=== PATIENT | female | born 1945 | race Two or more races ===

== ENCOUNTER → 2024-12-10 | Outpatient (CLI) | payer OTHER, SELFPAY ==
--- NOTE | 2024-12-10 10:23 | XR_ITS ---
Examination: Shoulder,right, 3 views Technique: Shoulder AP internal rotation, AP external rotation, Y view shoulder, 3 views Exam date and time :December 10, 2024 1030 hrs. Indications: Patient fell 4 months ago with injury to the shoulder, shoulder pain. Findings: Prominent osteopenia. No acute shoulder fracture or dislocation Mild osteoarthritis glenohumeral joint Impression: No acute shoulder fracture or dislocation
--- NOTE | 2024-12-10 10:23 | XR_ITS ---
Examination: Knee, right , 3 views Technique: Knee AP, lateral, oblique 3 views Date and time of exam: December 10, 2024 1030 hrs. Indications: Patient fell 4 months ago with injury to the knee, knee pain Findings: Advanced osteoarthritis lateral joint spaces and patellofemoral joint Moderate knee effusion No acute fracture Impression: No acute fracture
== END | disposition home or self-care (01) ==
PROVIDERS: Referring Provider Nurse Practitioner Family; Visit Provider Nurse Practitioner Family
DX: S49.91XA Unspecified injury of right shoulder and upper arm, initial encounter (principal); S89.91XA Unspecified injury of right lower leg, initial encounter; W18.30XA Fall on same level, unspecified, initial encounter
CPT/HCPCS: 73030; 73562

== ENCOUNTER → 2025-01-03 | Outpatient (CLI) | payer OTHER, SELFPAY ==
--- NOTE | 2025-01-03 11:00 | XR_ITS ---
Examination: Screening digital mammography, bilateral Computer aided detection 3-D breast Tomosynthesis, bilateral Date and time of exam: January 03, 2025 0933 hours Compared to mammograms dating to 05/13/2016 Indication: Screening Technique: Nonmagnified MLO, CC views of the breasts to been obtained, reconstructed from 3-D Tomosynthesis images. R2 computer aided detection program utilized for evaluation of suspicious masses and/or abnormal calcifications. 3-D Tomosynthesis images obtained. Findings: Scattered areas of fibroglandular density. Benign calcifications. No interval suspicious masses Impression: BI-RADS category II: Benign Findings. Recommend 1 year follow-up mammogram.
== END | disposition home or self-care (01) ==
LOC: CDIM 09:10
PROVIDERS: Referring Provider Nurse Practitioner Family; Visit Provider Nurse Practitioner Family
DX: Z12.31 Encounter for screening mammogram for malignant neoplasm of breast (principal); R92.323 Mammographic fibroglandular density, bilateral breasts; R92.1 Mammographic calcification found on diagnostic imaging of breast
CPT/HCPCS: 77063; 77067

== ENCOUNTER → 2025-02-07 | Outpatient (CLI) | payer OTHER, SELFPAY ==
--- NOTE | 2025-02-07 12:00 | XR_ITS ---
Examination: Bone densitometry Date and time of exam:February 07, 2025 12:20 PM INDICATIONS: Menopause age 47, family history sister osteoporosis, personal history osteopenia Technique: Lumbar spine and hip total bone mineralization values of an calculated. Peak reference and age match control results have been displayed. Findings: Lumbar spine total bone mineralization is0.881 gm/cm2. This is 1.5 standard deviations below peak reference. This is 1.3 standard deviations above age-matched controls. Hip total bone mineralization is 0.861 gm/cm2 This is 0.8 standard deviations below peak reference. This is 1.2 standard deviations above age-matched controls Impression: There is osteopenia based on lumbar spine measurements. There is osteopenia based on hip measurements Lumbar mineralization is increase 7.3% compared with August 17, 2018 Hip mineralization is decreased 1.5% compared with August 17, 2018
== END | disposition home or self-care (01) ==
LOC: CDIM 11:41
PROVIDERS: PCP Nurse Practitioner Family; Referring Provider Nurse Practitioner Family; Visit Provider Nurse Practitioner Family
DX: M85.89 Other specified disorders of bone density and structure, multiple sites (principal)
CPT/HCPCS: 77080

== ENCOUNTER → 2025-03-27 | Outpatient (CLI) | payer OTHER, SELFPAY ==
--- NOTE | 2025-03-27 10:00 | XR_ITS ---
Examination: Thyroid sonography complete TECHNIQUE: Grayscale sonographic images thyroid lobes Date and time: March 27, 2025 1030 hours INDICATIONS: Pressure in the throat region and neck area 2 months. FINDINGS: Right thyroid 5.0 cm No solid nodules Left thyroid 3.2 cm Lower pole nodule 13 x 7 x 9 mm vascular IMPRESSION: Consider ultrasound-guided fine-needle aspiration of the vascular lower pole left thyroid nodule
== END | disposition home or self-care (01) ==
PROVIDERS: PCP Nurse Practitioner Family; Referring Provider Nurse Practitioner Family; Visit Provider Nurse Practitioner Family
DX: E04.1 Nontoxic single thyroid nodule (principal)
CPT/HCPCS: 76536

== ENCOUNTER → 2025-05-28 | Outpatient (CLI) | payer OTHER, SELFPAY ==
[2025-05-27 07:39] LABS: Basophils # (Auto) 0.0 Thou/mm3 (0.0-0.2); Basophils % (Auto) 0 % (0-2.5); Eosinophils # (Auto) 0.1 Thou/mm3 (0.0-0.5); Eosinophils % (Auto) 2 % (0-10); Hematocrit 41.2 % (36.0-46.0); Hemoglobin 13.5 g/dL (12.0-16.0); Immature Granulocytes Auto 0.02 Thou/mm3 (0.00-0.00); Lymphocytes # (Auto) 2.8 Thou/mm3 (1.0-4.8); Lymphocytes % (Auto) 37 % (10-50); Mean Corpuscular HGB Conc 32.8 g/dl (31.0-37.0); Mean Corpuscular Hemoglobin 28.1 pg (25.0-35.0); Mean Corpuscular Volume 86 fL (80-100); Monocytes # (Auto) 0.6 Thou/mm3 (0.0-0.8); Monocytes % (Auto) 7 % (0-12); Neutrophils # (Auto) 4.0 Thou/mm3 (1.8-7.7); Neutrophils % (Auto) 54 % (37-80); Nucleated Red Blood Cell # 0.00 Thou/mm3 (0.00-0.00); Nucleated Red Blood Cell % 0 /100 WBC (0); Platelet Count 267 Thou/mm3 (140-440); RDW Standard Deviation 42.3 fL (36.4-46.3); Red Blood Count 4.80 Miln/mm3 (4.00-5.20); White Blood Count 7.5 Thou/mm3 (3.6-11.0)
[2025-05-27 07:48] LABS: INR 1.0 (0.9-1.3); Partial Thromboplastin Time 29.1 Seconds (22.0-36.0); Prothrombin Time 10.8 Seconds (9.0-12.2)
--- NOTE | 2025-05-28 08:30 | XR_ITS ---
Examination: Ultrasound-guided fine needle percutaneous aspiration thyroid nodule, left thyroid nodule. Thyroid sonography, limited Exam date and time: May 24 4 g 2024, 0914 hours INDICATIONS: Lower pole 13 mm left thyroid nodule on thyroid sonogram March 27, 2025 Technique: A timeout was completed verifying correct patient, procedure, site, positioning and special equipment if applicable. The patient was placed in supine position for the thyroid fine needle percutaneous aspiration The patient's left neck was prepped and draped in sterile fashion. Maximum barrier sterile technique, hand hygiene, ultrasound sterile technique. 1% lidocaine was used to anesthetize the skin and subcutaneous tissues to the patient's right thyroid nodule. Multiple fine needle aspirations were performed and multiple thyroid specimens placed in preservative according to the irm protocol. Specimens appears satisfactory. The attending radiologist was present for the entire procedure. Estimated blood loss 3 cc. The patient tolerated the procedure well and there were no complications. Impression: Successful ultrasound-guided fine-needle percutaneous aspiration thyroid nodule, left thyroid nodule.
== END | disposition home or self-care (01) ==
PROVIDERS: Radiology Diagnostic Radiology; PCP Nurse Practitioner Family; Referring Provider Nurse Practitioner Family; Visit Provider Nurse Practitioner Family
DX: E04.1 Nontoxic single thyroid nodule (principal); Z01.812 Encounter for preprocedural laboratory examination
CPT/HCPCS: 10005; 36415; 85025; 85610; 85730

== ENCOUNTER 2025-07-02 00:32 | Emergency (ER) | payer OTHER, MEDICAID, SELFPAY ==
[2025-07-02 00:43] VITALS: BP 145/84; BP 161/75; PULSE 65; RESP 17; TEMP 36.6; O2SAT 98
[2025-07-02 00:44] VITALS: BMI 34.3
--- NOTE | 2025-07-02 00:50 | XR_ITS ---
Examination: CT brain head without contrast. 2-D sagittal coronal reconstructions Date and time of exam: July 02, 2025, 0133 hours, comparison August 10, 2022 CTDI: vol (mGy): 49.4 DLP: (mGycm): 945 INDICATIONS: Headaches and dizziness onset today Technique: Multiple CT axial sections of the brain have been obtained, 5 mm slice thickness. Contrast has not been administered. 2-D sagittal, coronal reconstructions have been obtained Low dose protocols were performed. One or more of the following dose reduction techniques were used; automated exposure control, adjustment of the mA and/or KV according to patient size, use of iterative reconstruction technique. Findings: No significant ventricular enlargement. Intra-axial or extra-axial hemorrhage density is not seen. No mass effect or midline shift Basal cisterns are not remarkable. Fourth ventricle is midline. Cranial vault intact. Impression: Negative for acute hemorrhage, mass effect or midline shift Advise clinical correlation and follow-up accordingly
--- NOTE | 2025-07-02 00:51 | EDRME_ITS ---
Rapid Medical Screening Exam FORMERLY [facility], [facility] Arrival date/time: 07/02/25 00:32 80F with history of HTN and GERD presents to ED with 2 months of intermittent ringing in L ear. Patient is currently doing some kind of therapy due to fluid in L ear. Patient came today because she's never had dizziness with it before. Now she is dizzy. Chief Complaint: General Adult/Misc Complain Vital signs: Vital Signs Temperature 97.8 F 07/02/25 00:43 Pulse Rate 65 07/02/25 00:43 Respiratory Rate 17 07/02/25 00:43 Blood Pressure 161/75 H 07/02/25 00:43 Pulse Oximetry (%) 98 07/02/25 00:43 Oxygen Delivery Method Room Air 07/02/25 00:43 Exam: L TM effusion. CN II-XII grossly intact. Neg pronator drift test. Speech normal. Clinical Impression: TIA/CVA vs dizziness vs BPPV vs serous OM vs vertebral stenosis/dissection
[2025-07-02] MEDS: MECLIZINE HCL 25 MG TABLET PO (01:03)
--- NOTE | 2025-07-02 01:08 | EKG_ITS ---
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1945 Requested By: Garland Foster Order Number: [id number] Reading MD: Garland Foster Measurements Intervals [place] Rate: 68 P: 33 CO: 149 QRS: -47 QRSD: 86 T: 29 QT: 394 QTc: 419 Interpretive Statements SINUS RHYTHM LEFT ANTERIOR FASCICULAR BLOCK [QRS AXIS <= -45, QR IN I, RS IN II] POSSIBLE ANTERIOR MYOCARDIAL INFARCTION , OF INDETERMINATE AGE [30 ms Q WAVE IN V3/V4, OR R < 0.2 mV IN V4] Compared to ECG 02/10/2023 07:09:36 Left anterior fascicular block now present Left-axis deviation no longer present Myocardial infarct finding still present /store/S0/[id number]/ecg/[id number].pdf
[2025-07-02 01:24] LABS: Collection Type, Urine Clean Catch
[2025-07-02 01:28] LABS: Basophils # (Auto) 0.0 Thou/mm3 (0.0-0.2); Basophils % (Auto) 0 % (0-2.5); Eosinophils # (Auto) 0.1 Thou/mm3 (0.0-0.5); Eosinophils % (Auto) 1 % (0-10); Hematocrit 39.7 % (36.0-46.0); Hemoglobin 13.0 g/dL (12.0-16.0); Immature Granulocytes Auto 0.05 Thou/mm3 (0.00-0.00); Lymphocytes # (Auto) 2.8 Thou/mm3 (1.0-4.8); Lymphocytes % (Auto) 26 % (10-50); Mean Corpuscular HGB Conc 32.7 g/dl (31.0-37.0); Mean Corpuscular Hemoglobin 28.1 pg (25.0-35.0); Mean Corpuscular Volume 86 fL (80-100); Monocytes # (Auto) 0.7 Thou/mm3 (0.0-0.8); Monocytes % (Auto) 6 % (0-12); Neutrophils # (Auto) 7.1 Thou/mm3 (1.8-7.7); Neutrophils % (Auto) 66 % (37-80); Nucleated Red Blood Cell # 0.00 Thou/mm3 (0.00-0.00); Nucleated Red Blood Cell % 0 /100 WBC (0); Platelet Count 318 Thou/mm3 (140-440); RDW Standard Deviation 41.8 fL (36.4-46.3); Red Blood Count 4.62 Miln/mm3 (4.00-5.20); White Blood Count 10.7 Thou/mm3 (3.6-11.0)
[2025-07-02 01:32] LABS: Bilirubin,Urine Negative (Negative); Blood,Urine Negative (Negative); Clarity,Urine Clear (Clear/Hazy); Color,Urine Colorless (Lt Yel-Yel); Culture Indicated,Urine Not Indicated; Glucose, Urine Negative (Negative); Ketones,Urine Negative (Negative); Leukocyte Esterase,Urine Negative (Negative); Nitrite,Urine Negative (Negative); PH,Urine 7.0 (5.0-7.0); Protein,Urine Negative (Neg - Trace); RBC,Urine < 1 /hpf (0-3); Specific Gravity,Urine 1.005 (1.001-1.035); Squamous Epithelial Cell,Urine < 1 /hpf (0-5); Urobilinogen,Urine Negative mg/dL (0.0-1.0); WBC,Urine 1 /hpf (0-5)
[2025-07-02 01:49] LABS: Alanine Aminotransferase 15 U/L (10-49); Albumin, Serum 4.8 gm/dL (3.4-4.8); Albumin/Globulin Ratio 2.1 (1.2-2.2); Alkaline Phosphatase 103 U/L (46-116); Anion Gap 11 (7-16); Aspartate Amino Transferase 23 U/L (0-34); BUN/Creatinine Ratio 15 Ratio (12-20); Bilirubin,Total 0.4 mg/dL (0.3-1.2); Blood Urea Nitrogen 12 mg/dL (9-23); Calcium 9.3 mg/dL (8.3-10.6); Calcium (Corrected) 9.3 mg/dL (8.5-10.1); Carbon Dioxide 25.9 mMol/L (20.0-31.0); Chloride 106 mMol/L (98-107); Creatinine (Component) 0.8 mg/dL (0.6-1.3); Estimated Creatinine Clearance 63.2 mL/min (>60); Globulin 2.3 gm/dL (2.3-3.5); Glucose 118 mg/dL (74-106); Osmolality,Calculated 285 (275-295); Potassium 4.0 mMol/L (3.4-5.1); Sodium 143 mMol/L (136-145); Total Protein 7.1 gm/dL (5.7-8.2); eGFR > 60 See Note
--- NOTE | 2025-07-02 01:57 | PRELIM_ITS ---
CT scan of the head without intravenous contrast (axial sections with sagittal and coronal reformats) July 02, 2025 0133 hours Clinical history: Dizziness No prior study is available for comparison. Findings: There is no evidence of acute intracranial hemorrhage, mass effect or midline shift. There are periventricular white matter hypodensities, compatible with chronic small vessel ischemia. The CSF spaces are prominent consistent with volume loss. Basal ganglia calcifications are present bilaterally. The calvarium is unremarkable. There is a small retention cyst or polyp in the left maxillary sinus. There is moderate mucosal thickening in the right sphenoid sinus. The mastoid air cells and the other visualized paranasal sinuses are clear. Impression: No evidence of acute intracranial hemorrhage, mass effect or midline shift. Periventricular chronic small vessel ischemia and volume loss. Suggest clinical correlation and follow up accordingly. Report Electronically Signed By: Piyush Brewster 07/02/2025 1:56:43 AM [EST]
[2025-07-02 03:00] VITALS: BP 152/79; PULSE 63; RESP 19; TEMP 36.6; O2SAT 97
--- NOTE | 2025-07-02 03:23 | PD.EDDIZZY ---
ED Dizzyness RME/HPI General Chief Complaint: General Adult/Misc Complain Stated Complaint: DIZZY, HEADACHE Time Seen by Provider: 07/02/25 00:59 Arrival date/time: 07/02/25 00:32 RME / HPI RME / HPI Narrative: 07/02/25 00:32 80F with history of HTN and GERD presents to ED with 2 months of intermittent ringing in L ear. Patient is currently doing some kind of therapy due to fluid in L ear. Patient came today because she's never had dizziness with it before. Now she is dizzy. DR. PINO MAIN ED EVALUATION: Patient presenting with chronic vertigo pending ENT appointment notes episode occurring this evening with nausea and vomiting. Symptoms do not tend to worsen with movement. No antecedent fever, chills, abdominal pain, or diarrhea. PMH: Chronic Vertigo, Hardwick's Palsy, Hypercholesterolemia, Hypertension, Gastroesophageal Reflux Disease, Obesity, Arthritis, Cataracts, Depression PSH: Non-contributory Allergies: None Social: Non-smoker, Non-drinker, No illicit drug abuse Exam: L TM effusion. CN II-XII grossly intact. Neg pronator drift test. Speech normal. Impression: TIA/CVA vs dizziness vs BPPV vs serous OM vs vertebral stenosis/dissection Related Data Home Medications ?Medication ?Instructions ?Recorded ?Confirmed amlodipine 5 mg tablet 5 mg PO QDAY 02/09/23 02/09/23 ashwagandha root extract 500 mg 1,000 mg PO DAILY 02/09/23 02/09/23 capsule atorvastatin 10 mg tablet 10 mg PO QPM 02/09/23 02/09/23 pantoprazole 40 mg tablet,delayed 40 mg PO QDAY 02/09/23 02/09/23 release (Protonix) turmeric root extract 1,053 mg 1,076 mg PO QDAY 02/09/23 02/09/23 tablet vitamin E 400 unit tablet 45 mg PO QDAY 02/09/23 02/09/23 Previous Rx's ?Medication ?Instructions ?Recorded meclizine 25 mg tablet (Dramamine 25 mg PO TID vertigo #30 tabs 10/29/25 (meclizine)) Allergies Allergy/AdvReac Type Severity Reaction Status Date / Time No Known Allergies Allergy Verified 07/02/25 00:33 Review of Systems Review of Systems Systems Reviewed: All systems reviewed, normal except as documented Past Medical History Past Medical History NEUROLOGIC: Positive Hardwick's Palsy CARDIAC: Positive Hypercholesterolemia and Hypertension GASTROINTESTINAL: Positive Gastroesophageal Reflux Disease and Obesity REPRODUCTIVE: Positive Previous Pregnancies MUSCULOSKELETAL: Positive Arthritis ENT: Positive Cataracts PSYCHO/SOCIAL: Positive Depression OTHER HISTORY: Positive Hospitalization and Measles Family History FAMILY HISTORY: Positive Family Cardiac Disorders, Family Gastrointestinal Problems, Family Cancer and Family Surgery Surgical History SURGICAL: Positive Abdominal Surgery, Joint Replacement and Hysterectomy ED Exam Narrative Physical exam: GEN. APPEARANCE: The patient is alert awake oriented X-3 under no distress, lying down comfortably, does not look ill/toxic. Patient has good eye contact. Patient is cooperative. VITALS: All vitals were reviewed and the pulse ox is 97%, which is normal according to my interpretation HEENT: Normocephalic, atraumatic and nontender. Pupils are equal and reactive. No nystagmus. Oral mucosa is moist. NECK: Supple, nontender, no meningismus, no JVD. There is no thyromegaly and no lymphadenopathy. CHEST: Nontender on palpation no deformity and no crepitus. CARDIOVASCULAR: Heart regular rhythm, no murmur or gallop rub or extra beats. LUNGS: Clear to auscultation bilaterally with symmetrical chest rise. No laboring tachypnea or wheezing. No intercostal subcostal retraction. No rales and no rhonchi. ABDOMEN: Soft, flat, nontender to palpation, no guarding or rebound tenderness. There are no abnormal masses palpated. No pulsatile masses or bruits. Active and normal bowel sounds. EXTREMITIES: Normal inspection and palpation. No edema. No cyanosis. Patient is able to move all 4 extremities well SKIN: Warm and dry, no rashes noted. MUSCULOSKELETAL: No lumbar or midline bony tenderness. There is no CVA tenderness. No paraspinal muscle spasm or tenderness. NEURO: Cranial nerves II through XII grossly intact. There are no focal neurologic deficits noted. GCS is 15. Normal finger to nose, gait not observed. PSYCHIATRIC: Patient is in normal mood and affect, cooperative. LYMPHATICS: No major lymphadenopathy noted. Course Quality Measures none Orders Category Date Time Status EKG (ED ONLY) *Do not use* NOW Care 07/02/25 01:09 Completed EKG (ED ONLY) *Do not use* NOW Care 07/02/25 01:[address] head/brain wo con Stat Exams 07/02/25 00:50 Taken EKG (ED Only) Stat Exams 07/02/25 01:05 Ordered EKG (ED Only) Stat Exams 07/02/25 01:09 Ordered CBC Stat Lab 07/02/25 01:03 Completed CMP [Comprehensive Metabolic Panel] Stat Lab 07/02/25 01:03 Completed Urinalysis, C/S if Indicated Stat Lab 07/02/25 01:00 Completed Meclizine HCl [Antivert] Med 07/02/25 00:50 Discontinued 25 mg PO X1 ONE Meclizine HCl [Antivert] Med 07/02/25 03:25 Discontinued 25 mg PO X1 ONE EKG (RT) Stat RT 07/02/25 01:08 Draft Vital Signs Vital signs: Vital Signs Temperature 97.8 F 07/02/25 00:43 Pulse Rate 65 07/02/25 00:43 Respiratory Rate 17 07/02/25 00:43 Blood Pressure 161/75 H 07/02/25 00:43 Pulse Oximetry (%) 98 07/02/25 00:43 Oxygen Delivery Method Room Air 07/02/25 00:43 Dizziness MDM Narrative MDM Narrative:: Scribe Attestation: Jaky Cuellar, am scribing for and in the presence of Dr. Pino. Provider Notation: Although this document has been carefully reviewed, there may still be some phonetic and other typographical errors. These errors are purely grammatical due to imperfections in the software program and should not be construed in any way to compromise the substance of the patient's medical care during this visit. Patient presenting with chronic vertigo pending ENT appointment notes episode occurring this evening with nausea and vomiting. Symptoms do not tend to worsen with movement. Please see PE findings. Laboratory makers including CBC and serum chemistires demonstrate WBC of 10.7, normal hemoglobin and platelet count with no left shift. Serum chemistries essentially unremarkable, with glucose of 118. LFT's within normal limits. UA without signs of infection. Patient treated with Meclizine with mild to moderate improvement. EKG demonstrates sinus rhythm without acute ST segment changes, evidence of previous anterior septal CO. CT brain without acute process. Will be discharged on Meclizine to help with symptomatic relief. Final diagnosis includes chronic vertigo. Will additionally consider low-dose ASA. Patient data External records reviewed:: [facility] previous records ( 02/08/24 03:01 Chest pain, non-cardiac.) Clinical information provided by:: patient Social determinants that could affect healthcare access:: none Patient has the following chronic illnesses:: Hardwick's Palsy, Hypercholesterolemia, Hypertension, Gastroesophageal Reflux Disease, Obesity, Arthritis, Cataracts, Depression How is presenting disease/condition affected by chronic disease/condition?: exacerbated by Evaluation data The following diagnostics were reviewed and interpreted by me:: lab results, radiology exam(s) and EKG tracing(s) (EKG demonstrates sinus rhythm without acute ST segment changes, evidence of previous anterior septal CO, per my interpretation.) Lab and/or radiology exams considered but not ordered:: None Interpretation Summary: RADIOLOGY Head/Brain CT: Findings: There is no evidence of acute intracranial hemorrhage, mass effect or midline shift. There are periventricular white matter hypodensities, compatible with chronic small vessel ischemia. The CSF spaces are prominent consistent with volume loss. Basal ganglia calcifications are present bilaterally. The calvarium is unremarkable. There is a small retention cyst or polyp in the left maxillary sinus. There is moderate mucosal thickening in the right sphenoid sinus. The mastoid air cells and the other visualized paranasal sinuses are clear. Impression: No evidence of acute intracranial hemorrhage, mass effect or midline shift. Periventricular chronic small vessel ischemia and volume loss. Suggest clinical correlation and follow up accordingly. Medications / Prescriptions Medications or Prescriptions considered but not ordered:: None Medication administrations:: Medication Administration History Discontinued Medications Meclizine HCl (Meclizine Hcl 25 Mg Tablet) 25 mg PO X1 ONE Stop: 07/02/25 00:51 Last Admin: 07/02/25 01:03 Dose: 25 mg Documented By: BOLA Meclizine HCl (Meclizine Hcl 25 Mg Tablet) 25 mg PO X1 ONE Stop: 07/02/25 03:26 See above if any Consultations Consultation(s) initiated? (list below): No Diagnosis Dizziness Differential Diagnosis: benign paroxysmal positional vertigo, orthostatic hypotension, vertebral basilar insufficiency, cerebrovascular accident, acute vestibular neuronitis and transient cerebral ischemia Most likely diagnosis given after review of the tests above:: Chronic vertigo Admission Indicated Admission indicated?: not indicated Explain why admission is indicated or not indicated:: Patient does not meeet admission criteria Admission Request Was there a request for admission?: No Disposition Plan Disposition Plan: Discharge Discharge Attestation Discharge Attestation: The patient and all family members were given an opportunity to ask questions and understood the discharge instructions. Discharge instructions specifically effects, indications for sooner follow up or return to the emergency department, and the expected course of current diagnosis. Patient condition: Stable Discharge Plan Plan Patient Disposition: HOME (Self Care) Discharge Disposition comment: Stable Prescriptions/Referrals Prescriptions/Med Rec: No Action atorvastatin 10 mg Tablet 10 mg PO QPM amlodipine 5 mg Tablet 5 mg PO QDAY pantoprazole [Protonix] 40 mg Tablet,Delayed Release (Dr/Ec) 40 mg PO QDAY vitamin E 400 unit Tablet 45 mg PO QDAY turmeric root extract 1,053 mg Tablet 1,076 mg PO QDAY ashwagandha root extract 500 mg Capsule 1,000 mg PO DAILY Referrals: Marc Ramesh MD [Primary Care Provider, Family Practice] - In 1 week Problem List Clinical Impression: Chronic vertigo Patient/Caregiver Discharge Instructions Print Language: Guamanian Stand Alone Forms: [facility] Award Info., Patient Portal Info Letter
[2025-07-02 03:56] VITALS: BP 131/88; PULSE 71; RESP 16; O2SAT 97
== END 2025-07-02 04:11 | disposition home or self-care (01) ==
PROVIDERS: Physician Assistant; Emergency Provider Emergency Medicine; PCP Family Medicine
DX: R42 Dizziness and giddiness (principal); E66.9 Obesity, unspecified; E78.00 Pure hypercholesterolemia, unspecified; I10 Essential (primary) hypertension
CPT/HCPCS: 36415; 70450; 80053; 81001; 85025; 93005; 99283; A9270

== ENCOUNTER → 2025-07-08 | Outpatient (CLI) | payer OTHER, MEDICAID, SELFPAY ==
[2025-07-07 11:21] LABS: Basophils # (Auto) 0.0 Thou/mm3 (0.0-0.2); Basophils % (Auto) 0 % (0-2.5); Eosinophils # (Auto) 0.1 Thou/mm3 (0.0-0.5); Eosinophils % (Auto) 1 % (0-10); Hematocrit 40.8 % (36.0-46.0); Hemoglobin 13.5 g/dL (12.0-16.0); Immature Granulocytes Auto 0.04 Thou/mm3 (0.00-0.00); Lymphocytes # (Auto) 2.1 Thou/mm3 (1.0-4.8); Lymphocytes % (Auto) 22 % (10-50); Mean Corpuscular HGB Conc 33.1 g/dl (31.0-37.0); Mean Corpuscular Hemoglobin 28.8 pg (25.0-35.0); Mean Corpuscular Volume 87 fL (80-100); Monocytes # (Auto) 0.7 Thou/mm3 (0.0-0.8); Monocytes % (Auto) 7 % (0-12); Neutrophils # (Auto) 6.7 Thou/mm3 (1.8-7.7); Neutrophils % (Auto) 70 % (37-80); Nucleated Red Blood Cell # 0.00 Thou/mm3 (0.00-0.00); Nucleated Red Blood Cell % 0 /100 WBC (0); Platelet Count 318 Thou/mm3 (140-440); RDW Standard Deviation 43.0 fL (36.4-46.3); Red Blood Count 4.68 Miln/mm3 (4.00-5.20); White Blood Count 9.5 Thou/mm3 (3.6-11.0)
[2025-07-07 11:33] LABS: INR 1.0 (0.9-1.3); Partial Thromboplastin Time 30.0 Seconds (22.0-36.0); Prothrombin Time 10.7 Seconds (9.0-12.2)
--- NOTE | 2025-07-08 09:30 | XR_ITS ---
EXAM: Ultrasound-guided thyroid biopsy INDICATION: Left thyroid nodule. DATE: 07/08/2025, 9:27 a.m. PROCEDURE: After discussion of risks and benefits informed consent was obtained. Patient was placed supine on the exam table in the ultrasound weight. Preliminary ultrasound evaluation again demonstrated a heterogeneous left thyroid nodule. This was targeted for fine needle aspiration. The overlying skin was cleaned and draped in normal sterile surgical fashion. 10 cc of 1% lidocaine was used for local anesthesia. Using ultrasound guidance multiple 25-gauge needles were sequentially advanced into the targeted nodule under direct ultrasound visualization. Samples were placed in solution and sent to the lab for analysis. Needle was withdrawn. Hemostasis was achieved. The access site was covered with a sterile dressing. There were no immediate complications. IMPRESSION: Successful ultrasound guided biopsy of left thyroid nodule as above.
== END | disposition home or self-care (01) ==
LOC: SIRX 08:23
PROVIDERS: Radiology Diagnostic Radiology; PCP Nurse Practitioner Family; Referring Provider Nurse Practitioner Family; Visit Provider Radiology Diagnostic Radiology
DX: E04.1 Nontoxic single thyroid nodule (principal)
CPT/HCPCS: 60100; 36415; 76942; 85025; 85610; 85730